=== PATIENT | female | born 2000 | race Hispanic/Latino ===

== ENCOUNTER 2020-07-06 23:24 | Emergency (ER) | payer SELFPAY ==
[~2020-07-06] VITALS: Ht 157.5 cm; Wt 79.8 kg
[2020-07-06] MEDS ORDERED: IBUPROFEN800 MG PO (23:52)
== END 2020-07-07 01:59 | disposition home or self-care (01) ==
LOC: ED 23:24
DX: R10.84 Generalized abdominal pain (principal)
CPT/HCPCS: 74177; 80053; 81001; 83690; 84703; 85025; 99284-25; J1170; J2405; J7030; Q9967

== ENCOUNTER 2021-06-21 17:41 | Emergency (ER) | payer OTHER ==
[~2021-06-21] VITALS: Ht 157.5 cm; Wt 79.8 kg
[~2021-06-21 17:41] MED LIST: IBUPROFEN800 MG PO
[2021-06-21] MEDS ORDERED: HYDROCODON-ACE1 EA10 PO (22:00)
== END 2021-06-21 22:18 | disposition home or self-care (01) ==
LOC: ED 17:41
DX: N94.6 Dysmenorrhea, unspecified (principal)
CPT/HCPCS: 74177; 76830; 76856; 80053; 81001; 83690; 83735; 84703; 85025; 99284-25; J2405; Q9967

== ENCOUNTER 2024-02-18 00:17 | Emergency (ER) | payer OTHER ==
[~2024-02-18] VITALS: Ht 157.5 cm; Wt 92.0 kg
[~2024-02-18 00:17] MED LIST changes: +HYDROCODON-ACE1 EA10 PO
[2024-02-18] MEDS ORDERED: EAR WAX REMOVAL15 ML OTIC (00:34)
[2024-02-18 01:00] VITALS: BP 120/88
== END 2024-02-18 01:00 | disposition home or self-care (01) ==
LOC: ED 00:17
DX: H61.21 Impacted cerumen, right ear (principal)
CPT/HCPCS: 69209; 99282-25

== ENCOUNTER 2024-04-13 19:06 | Emergency (ER) | payer OTHER ==
[~2024-04-13] VITALS: Ht 157.5 cm; Wt 92.0 kg
--- NOTE | ~2024-04-13 | EKG ---
[facility] [address] [facility] [address] [place], [place] [address] Draft EK completed, results pending confirmation PATIENT NAME: MELBA SILVERMAN Electrocardiogram DATE OF : 89 PHYSICIAN: PRELIMINARY REPORT #: [id number] REPORT IS CONFIDENTIAL AND NOT TO BE RELEASED WITHOUT AUTHORIZATION
[~2024-04-13 19:06] MED LIST changes: +EAR WAX REMOVAL15 ML OTIC
[2024-04-13] MEDS ORDERED: FAMOTIDINE 20 MG/ 2 ML VIAL IV ONE (20:45)
[2024-04-13] MEDS ORDERED: KETOROLAC TROMETHAMINE 30 MG/ML VIAL IV ONE (20:45)
[2024-04-13 20:55] LABS: BASOPHILS 0.9 % (0-2); EOSINOPHILS 2.6 % (0-6); HEMATOCRIT 43.2 % (35.0-50.0); HEMOGLOBIN 14.5 g/dL (12.0-18.0); LYMPHOCYTES 34.8 % (24-44); MCH 28.6 (27-36); MCHC 33.6 g/dl (30-36); MCV 85.1 fl (81-99); MONOCYTES 5.8 % (0-12); NEUTROPHILS 55.9 % (39-80); PLATELET COUNT 295 K/uL (140-440); RBC 5.07 M/ul (4.3-5.7); RDW 13.4 (10.5-15.0)
[2024-04-13 21:17] LABS: ALBUMIN 4.1 g/dL (3.4-5.0); ALBUMIN/GLOBULIN RATIO 1.11 (1.1-2.4); ALKALINE PHOSPHATASE 115 U/L (46-116); ALT (SGPT) 74 U/L (14-59); ANION GAP 12.8 (7-21); AST (SGOT) 19 U/L (15-37); BILIRUBIN, TOTAL 0.5 ng/dL (0.2-1.0); CALCIUM 9.7 mg/dL (8.5-10.1); CARBON DIOXIDE 28 mmol/L (21-32); CHLORIDE 103 mmol/L (98-107); CREATININE, SERUM 0.67 mg/dL (0.55-1.02); GLOMERULAR FILTRATION RATE,EST 125 mL/min (>60); MAGNESIUM 2.1 mg/dL (1.8-2.4); POTASSIUM 3.8 mmol/L (3.5-5.1); PROTEIN, TOTAL 7.8 g/dL (6.4-8.2); UREA NITROGEN 13 mg/dL (7-18)
[2024-04-13 23:01] VITALS: BP 126/78
== END 2024-04-13 23:01 | disposition home or self-care (01) ==
LOC: ED 19:06
PROVIDERS: Internal Medicine
DX: R09.1 Pleurisy (principal); Z79.899 Other long term (current) drug therapy
CPT/HCPCS: 36415; 71045; 80053; 83735; 83880; 84484; 84703; 85025; 85379; 93005; 93010; 96374; 96375; 99285-25; J1885

== ENCOUNTER 2024-07-10 18:10 | Emergency (ER) | payer OTHER ==
[~2024-07-10] VITALS: Ht 157.5 cm; Wt 96.0 kg
[2024-07-10] MEDS ORDERED: PRENATA CHEWAB1 EACH PO (18:34)
[2024-07-10 19:03] LABS: BASOPHILS 0.7 % (0-2); EOSINOPHILS 2.1 % (0-6); HEMATOCRIT 46.5 % (35.0-50.0); HEMOGLOBIN 15.6 g/dL (12.0-18.0); LYMPHOCYTES 31.6 % (24-44); MCH 29.2 (27-36); MCHC 33.6 g/dl (30-36); MONOCYTES 5.5 % (0-12); NEUTROPHILS 60.1 % (39-80); PLATELET COUNT 291 K/uL (140-440); RBC 5.34 M/ul (4.3-5.7); RDW 13.8 (10.5-15.0)
[2024-07-10 19:03] LABS: BILIRUBIN, URINE NEGATIVE (negative); BLOOD/HGB, URINE NEGATIVE (Negative); KETONE, URINE NEGATIVE (Negative); LEUK ESTERASE, URINE NEGATIVE (negative); NITRITE, URINE NEGATIVE (negative)
[2024-07-10 19:28] LABS: ABO O; RH POSITIVE
[2024-07-10 19:39] LABS: ANION GAP 20.1 (7-21); BUN/CREATININE RATIO 11.11 (6.0-28.6); CALCIUM 9.8 mg/dL (8.5-10.1); CREATININE, SERUM 0.63 mg/dL (0.55-1.02); POTASSIUM 3.1 mmol/L (3.5-5.1)
[2024-07-10] MEDS ORDERED: POTASSIUM CHLORIDE 10 MEQ TABCR PO ONE (22:15)
[2024-07-10] MEDS ORDERED: POTASSIUM CHLORIDE 10 MEQ TABCR ONE (22:16)
[2024-07-10 22:30] VITALS: BP 124/83
== END 2024-07-10 22:30 | disposition home or self-care (01) ==
LOC: ED 18:10
PROVIDERS: Emergency Medicine
DX: O20.9 Hemorrhage in early pregnancy, unspecified (principal); Z3A.01 Less than 8 weeks gestation of pregnancy; Z79.899 Other long term (current) drug therapy
CPT/HCPCS: 36415; 76801; 76817; 80048; 81003; 84702; 85025; 86900; 86901; 99284-25; A9270

== ENCOUNTER 2024-07-13 21:30 | Emergency (ER) | payer OTHER ==
[~2024-07-13] VITALS: Ht 157.5 cm; Wt 95.0 kg
[~2024-07-13 21:30] MED LIST changes: +PRENATA CHEWAB1 EACH PO
--- OUTSIDE RECORDS SUMMARY | 2024-07-13 21:35 | XMS ---
PreManage Notification: MELBA SILVERMAN Security [employer] Events No recent Security Events currently on file CRITERIA MET - [facility] - 2 Visits in 30 Days CARE PROVIDERS LASHELL TIM [facility] Current R. PHONE: [phone] Andrey has no Care Guidelines for this patient. EFortunato VISIT COUNT (12 MO.) 4 [facility] TOTAL 4 NOTE: Visits indicate total known visits. ED/UCC VISIT TRACKING (12 MO.) 07/13/2024 21:30 [facility] TYPE: Emergency COMPLAINT: - VAGINAL BLEEDING 07/10/2024 18:10 [facility] TYPE: Emergency COMPLAINT: - VAGINAL BLEEDING/CRAMPING/7 WEEKS DIAGNOSES: - Hemorrhage in early , unspecified - Less than 8 weeks gestation of - Other usp (current) drug therapy 04/13/2024 19:06 [facility] TYPE: Emergency COMPLAINT: - CHEST PAIN DIAGNOSES: - Chest pain, unspecified - Other usp (current) drug therapy - Pleurisy 02/18/2024 00:17 [facility] [place] TYPE: Emergency COMPLAINT: - EAR PROBLEM DIAGNOSES: - Impacted cerumen, right ear INPATIENT VISIT TRACKING (12 MO.) No inpatient visits to display in this time frame [email or web address]
[2024-07-13 21:54] LABS: BASOPHILS 0.8 % (0-2); EOSINOPHILS 0.7 % (0-6); HEMOGLOBIN 14.1 g/dL (12.0-18.0); LYMPHOCYTES 30.9 % (24-44); MCH 28.9 (27-36); MCHC 33.6 g/dl (30-36); MCV 86.3 fl (81-99); MONOCYTES 4.9 % (0-12); NEUTROPHILS 62.7 % (39-80); PLATELET COUNT 261 K/uL (140-440); RBC 4.87 M/ul (4.3-5.7); RDW 13.7 (10.5-15.0)
[2024-07-13 22:29] LABS: BILIRUBIN, URINE NEGATIVE (negative); BLOOD/HGB, URINE LARGE (Negative); KETONE, URINE SMALL (Negative); LEUK ESTERASE, URINE NEGATIVE (negative); NITRITE, URINE NEGATIVE (negative)
[2024-07-13 22:34] LABS: ALBUMIN/GLOBULIN RATIO 1.08 (1.1-2.4); ANION GAP 16.6 (7-21); BILIRUBIN, TOTAL 0.7 ng/dL (0.2-1.0); BUN/CREATININE RATIO 10.25 (6.0-28.6); CALCIUM 9.3 mg/dL (8.5-10.1); CREATININE, SERUM 0.78 mg/dL (0.55-1.02); POTASSIUM 3.6 mmol/L (3.5-5.1); PROTEIN, TOTAL 7.7 g/dL (6.4-8.2)
[2024-07-13 22:43] LABS: BACTERIA, URINE NONE SEEN /hpf (negative); CASTS, URINE NONE SEEN \\lpf; COLLECTION TYPE, URINE CLEAN CATCH; CRYSTALS, URINE NONE SEEN (0-1+); EPITHELIAL CELLS, URINE 0 /lpf (0-1+); RED BLOOD CELLS, URINE >50 /hpf (0-5); REFLEX CULTURE, URINE No (No); WHITE BLOOD CELLS, URINE 0-1 /HPF (0-5)
[2024-07-14 00:38] VITALS: BP 124/73
== END 2024-07-14 00:38 | disposition home or self-care (01) ==
LOC: ED 21:30
PROVIDERS: Internal Medicine
DX: O20.9 Hemorrhage in early pregnancy, unspecified (principal); Z3A.01 Less than 8 weeks gestation of pregnancy
CPT/HCPCS: 36415; 76801; 76817; 80053; 81001; 84702; 85025; 99284-25